=== PATIENT | male | born 1985 | race Two or more races ===

== ENCOUNTER 2019-10-27 11:02 | Emergency (ER) | payer BC ==
[~2019-10-27] VITALS: Ht 185.4 cm; Wt 111.1 kg
[2019-10-27 15:47] VITALS: BP 129/69
[2019-10-27] MEDS ORDERED: KETOROLAC TROMETH 60MG/2ML VIAL IM ONE (16:30)
== END 2019-10-27 17:31 | disposition home or self-care (01) ==
LOC: ER 11:10
DX: S93.402A Sprain of unspecified ligament of left ankle, initial encounter (principal); X50.1XXA Overexertion from prolonged static or awkward postures, initial encounter; Y93.A1 Activity, exercise machines primarily for cardiorespiratory conditioning; Y92.39 Other specified sports and athletic area as the place of occurrence of the external cause; Y99.8 Other external cause status
CPT/HCPCS: 73610; 96372; 99283; J1885